=== PATIENT | female | born 1955 | race Caucasian/White ===

== ENCOUNTER 2023-12-08 08:33 | Day surgery (SDC) | payer OTHER ==
[~2023-12-08] VITALS: Ht 162.6 cm; Wt 104.3 kg
[2023-12-08] MEDS ORDERED: LIDOCAINE MPF 2% 20 MG/1 ML, 5 ML VIAL INH ONE (10:00)
[2023-12-08 11:55] VITALS: O2SAT 98
[2023-12-08] MEDS: fentaNYL CITRATE/PF 100 MCG/2 ML AMP ONE (12:13)
[2023-12-08] MEDS: MIDAZOLAM HCL 5 MG/5 ML VIAL ONE (12:15)
[2023-12-08 17:33] VITALS: BP_SYST 129; PULSE 80; RESP 17
== END 2023-12-08 13:18 | disposition home or self-care (01) ==
LOC: SDS 08:33 → SMU 08:35 → SDS 13:18
PROVIDERS: ATTEND Internal Medicine
DX: M51.16 Intervertebral disc disorders with radiculopathy, lumbar region (principal); G89.4 Chronic pain syndrome; Z90.710 Acquired absence of both cervix and uterus; Z98.84 Bariatric surgery status; Z98.890 Other specified postprocedural states; Z88.0 Allergy status to penicillin; Z79.899 Other long term (current) drug therapy
CPT/HCPCS: 62323; J2250; J3010; Q9967; J1010; 76000; J1030